=== PATIENT | female | born 2000 | race Caucasian/White ===

== ENCOUNTER 2020-10-31 02:22 | Inpatient (IN) ==
[2020-10-31] MEDS ORDERED: ONDANSETRON INJ 2 MG/ML 2 ML VIAL IV STA (02:57)
[2020-10-31] MEDS ORDERED: SODIUM CHLORIDE 0.9% 1000ML 1,000 ML IV SCH (03:00)
[2020-10-31] MEDS: MoRPHine SULFATE 4 MG/ML 1 ML CARP\\VIAL IV PRN ×4 (03:10→08:50)
[2020-10-31 03:15] LABS: Basophils # (auto) 0.02 K/uL (0-0.2); Basophils % (auto) 0.1 %; Eosinophils # (auto) 0.04 K/uL (0-0.5); Eosinophils % (auto) 0.2 %; Hemoglobin 14.7 g/dL (12.0-16.0); Immature Granulocytes # (auto) 0.03 K/uL (0.00-0.02); Immature Granulocytes % (auto) 0.2 %; Lymphocytes # (auto) 2.28 K/uL (1.2-3.4); Lymphocytes % (auto) 14.2 %; Mean Corpuscular Hemoglobin 31.5 pg (25-34); Mean Corpuscular Volume 90.1 fL (80-100); Mean Platelet Volume 10.6 fL (7.4-10.4); Monocytes # (auto) 0.77 K/uL (0.11-0.59); Monocytes % (auto) 4.8 %; Neutrophils # (auto) 12.89 K/uL (1.4-6.5); Neutrophils % (auto) 80.5 %; Platelet Count 263 K/uL (130-400); RDW Coefficient of Variation 12.3 % (11.5-14.5); RDW Standard Deviation 40.1 fL (36.4-46.3); Red Blood Count 4.66 M/uL (4.2-5.4); White Blood Count 16.03 K/uL (4.8-10.8)
[2020-10-31 03:20] LABS: Appearance Urine Cloudy (Clear); Bacteria Urine Automated 2+ (Negative); Bilirubin Urine Negative (Negative); Blood Urine 3+ (Negative); Color Urine Yellow; Epithelial Cell Urine Auto >30 /lpf (0-5); Glucose Urine UA Negative (Negative); Ketones Urine Trace (Negative); Leukocyte Esterase Urine Trace (Negative); Nitrite Urine Negative (Negative); Protein Urine Trace (Negative); Specific Gravity Urine 1.028 (1.000-1.030); Urobilinogen Urine Negative (Negative); pH Urine 5.5 (4.5-7.5)
[2020-10-31 03:25] LABS: Alanine Aminotransferase 26 U/L (12-78); Albumin Level 3.7 gm/dl (3.4-5.0); Aspartate Aminotransferase 19 U/L (15-37); BUN Creatinine Ratio 15.7 (10-20); Blood Urea Nitrogen 13 mg/dl (7-18); Calcium 9.3 mg/dl (8.5-10.1); Carbon Dioxide 24 mmol/L (21-32); Chloride 104 mmol/L (98-107); Creatinine Clr Calc Pharmacy 107.4 ml/min; Est GFR (African American) 120.3 ml/min; Est GFR (Non-African American) 103.8 ml/min; Glucose 94 mg/dl (70-99); Lipase 120 U/L (73-393); Potassium 3.8 mmol/L (3.5-5.1); Sodium 138 mmol/L (136-145)
[2020-10-31 03:30] LABS: Albumin Globulin Ratio 0.7 (0.9-2); Alkaline Phosphatase 68 U/L (45-117); Bilirubin,Total 0.4 mg/dl (0.2-1); Globulin 5.4 gm/dl (2.5-4.0); Total Protein 9.1 gm/dl (6.4-8.2); Troponin I < 0.015 ng/ml (0-0.045)
[2020-10-31] MEDS ORDERED: OPTIRAY 320 125ml IV ONE (03:47)
[2020-10-31] MEDS ORDERED: ALBUT/IPRATROP 3MG/0.5MG NEB 3 ML VIAL NEB STA (04:05)
[2020-10-31] MEDS ORDERED: LORazepam 0.5 MG/1 ML VIAL IV STA (04:05)
[2020-10-31] MEDS ORDERED: Heparin IV Adult Wt-Based Standard WITH Bolus Protocol IV STA (04:57)
[2020-10-31] MEDS ORDERED: HEPARIN SOD (PORCINE) 1000 UNIT/ML IV ONE (05:13)
[2020-10-31] MEDS: HEPARIN SODIUM/DEXTROSE 25,000 UNITS/500 ML BAG IV SCH (05:29)
[2020-10-31 05:44] LABS: Partial Thromboplastin Time 25.9 Seconds (21.0-31.0); Prothrombin Time 9.8 Seconds (9.0-12.0)
--- NOTE | 2020-10-31 05:48 | History & Physical Report ---
Date of Service October 31, 2020 Assessment & Plan (1) Pulmonary emboli: Plan: 19-year-old female with no significant past medical history presenting with extensive bilateral PEs. Patient with sinus tachycardia, blood pressure is stable, no respiratory distress, adequate oxygenation on room air. PESI Score is very low at 41 as is shock index. Possible risk factors for VTE include recent car ride from [place], oral contraceptive use. Patient did just receive the Pedro [employer] Pedro Covid vaccine was has been associated with an increased risk of VTE when compared with placebo; specifically in women of childbearing age. While this is an extremely rare side effect of the vaccine it must be considered in this current case. Patient's platelets are normal at 263. Admit to PCU Check bilateral lower extremity Dopplers. Patient with large pulmonary clot burden Check 2D echo to assess for right heart strain Repeat troponin x1 Check BNP Check urine test We will check hyper coagulable labs to include prothrombin mutation, factor V, homocystine, protein C and protein S Continue heparin drip Dilaudid 1 mg IV every hour as needed Lidoderm patch (2) Anxiety: Plan: Chronic. Continue escitalopram at home dose Plan: FENHep-Lock, electrolytes within normal limits, regular diet as tolerated ProphylaxisHeparin drip as above Codefull Dispositionadmit to PCU History of Present Illness Chief Complaint: Pleuritic chest pain Primary Care Provider: [facility] Chika Eckert is a 19-year-old female with no significant past medical history presenting with extensive left-sided PE. Patient woke up yesterday with pain in the left side of her chest worse with deep breathing. The pain worsened throughout the day. She was unable to lay on her left side or take a deep breath. Pain stabbing in nature, 10 out of 10 in severity. She denies palpitations, dizziness, syncope, abdominal pain, nausea, vomiting, diarrhea, constipation No additional complaints Patient denies personal or family history of VTE. No trauma. Patient is on LoEstrin OCPs. She did have a recent car ride from [place]4 hours long. She did receive the Pedro [employer] Pedro Covid vaccine approximately 1-1/2 weeks ago. Patient tachycardic upon arrival and tachypneic. Blood pressure stable. No respiratory distress. Adequate oxygenation on room air. She does CTA of the chest performed which revealed large embolus originating in the distal left pulmonary artery and extending into the origin of the left upper lobe and left lower lobe pulmonary arteries extending into the left posterior and lateral basal segments and subsegmental pulmonary arteries. Also with lower lobe consolidation most consistent with hemorrhage or infarct. Also with pulmonary emboli on the right side from the distal right pulmonary artery and the proximal right lower lobe, right middle lobe and right upper lobe. ER course: Heparin bolus and drip started Allergies Allergy/AdvReac Type Severity Reaction Status Date / Time Sulfa (Sulfonamide Allergy Unknown Verified 10/31/20 05:55 Antibiotics) Home Medications Medication Instructions Recorded Confirmed Type escitalopram oxalate 20 mg tablet 20 mg PO DAILY 10/31/20 10/31/20 History norethindrone 1 mg-ethinyl tab PO DAILY 10/31/20 History estradiol 10 mcg (24)-iron 10 mcg(2) tablet (Lo Loestrin Fe) Past Med/Surg History Medical History (Updated 10/31/20 @ 06:15 by Josie Quinteros DO) No significant past medical history Surgical History (Updated 10/31/20 @ 05:57 by Josie Quinteros DO) History of tonsillectomy History of wisdom tooth extraction Family History (Updated 10/31/20 @ 05:57 by Josie Quinteros DO) Other No significant family history Social History (Updated 10/31/20 @ 05:58 by Josie Quinteros DO) Smoking Status: Never smoker Hx Alcohol Use: Yes Hx Substance Use: No Preferred Language: Eritrean Feels Safe at Home: Yes Review of Systems Review of Systems: All systems reviewed & are unremarkable except as noted in HPI & below Physical Exam Physical Exam: General: patient tearful, uncomfortable, AA&O x 4 Skin: warm, dry, intact, no rashes or lesions HEENT: NC/AT, PERRL, EOMI, anicteric sclera, conjunctiva without injection, external ear normal to inspection and nontender, nares patent, moist mucus membranes, dentition intact, no oropharyngeal lesions, neck supple, trachea midline, no LAD, no thyromegaly, no JVD Heart: +S1/S2, regular, tachycardic, no m/r/g Lungs: short, shallow breaths, tachypneic, equal air entry bilaterally, no rales/rhonchi/wheezes, +pleuritic chest pain Abd: +BS, soft, NT/ND, no masses/organomegaly/ascites Ext: warm, 2+ pulses in UE/LE bilaterally, no clubbing/cyanosis or edema Neuro: nonfocal, patient AA&O x 4, speech intact, no facial droop, moving all extremities on command with equal strength 5/5 Results & Data Results & Data ([facility]) Vital Signs (Past 12 Hours) Vital Signs Temp Pulse Pulse Resp BP Pulse Ox 10/31/20 05:30 138 H 28 H 130/89 95 10/31/20 05:00 131 H 29 H 131/75 96 10/31/20 04:30 121 H 26 H 127/86 94 10/31/20 04:14 127 H 26 H 100 10/31/20 04:00 115 H 29 H 135/85 97 10/31/20 03:15 105 H 29 H 125/78 100 10/31/20 02:27 37.1 C 134 H 20 127/82 98 Laboratory Results Lab Results 10/31/20 10/31/20 10/31/20 Range/Units 02:54 02:54 02:54 WBC 16.03 H (4.8-10.8) K/uL RBC 4.66 (4.2-5.4) M/uL Hgb 14.7 (12.0-16.0) g/dL Hct 42.0 (37-47) % MCV 90.1 (80-100) fL MCH 31.5 (25-34) pg MCHC 35.0 (32-36) g/dL RDW Std Deviation 40.1 (36.4-46.3) fL RDW Coeff of Alisha 12.3 (11.5-14.5) % Plt Count 263 (130-400) K/uL MPV 10.6 H (7.4-10.4) fL Immature Gran % (Auto) 0.2 % Neut % (Auto) 80.5 % Lymph % (Auto) 14.2 % [place] % (Auto) 4.8 % Eos % (Auto) 0.2 % Baso % (Auto) 0.1 % Neut # (Auto) 12.89 H (1.4-6.5) K/uL Lymph # (Auto) 2.28 (1.2-3.4) K/uL [place] # (Auto) 0.77 H (0.11-0.59) K/uL Eos # (Auto) 0.04 (0-0.5) K/uL Baso # (Auto) 0.02 (0-0.2) K/uL Immature Gran # (Auto) 0.03 H (0.00-0.02) K/uL PT (9.0-12.0) Seconds INR (0.9-1.1) APTT (21.0-31.0) Seconds PTT Ratio Sodium 138 (136-145) mmol/L Potassium 3.8 (3.5-5.1) mmol/L Chloride 104 (98-107) mmol/L Carbon Dioxide 24 (21-32) mmol/L Anion Gap 10.0 (3-11) BUN 13 (7-18) mg/dl Creatinine 0.81 (0.6-1.2) mg/dl Est Cr Clr Drug Dosing 107.4 ml/min Est GFR ( Amer) 120.3 ml/min Est GFR (Non-Af Amer) 103.8 ml/min BUN/Creatinine Ratio 15.7 (10-20) Glucose 94 (70-99) mg/dl Calcium 9.3 (8.5-10.1) mg/dl Total Bilirubin 0.4 (0.2-1) mg/dl AST 19 (15-37) U/L ALT 26 (12-78) U/L Alkaline Phosphatase 68 (45-117) U/L Troponin I < 0.015 (0-0.045) ng/ml Total Protein 9.1 H (6.4-8.2) gm/dl Albumin 3.7 (3.4-5.0) gm/dl Globulin 5.4 H (2.5-4.0) gm/dl Albumin/Globulin Ratio 0.7 L (0.9-2) Lipase 120 (73-393) U/L Urine Color Yellow Urine Appearance Cloudy A (Clear) Urine pH 5.5 (4.5-7.5) Ur Specific [place] 1.028 (1.000-1.030) Urine Protein Trace H (Negative) Urine Glucose (UA) Negative (Negative) Urine Ketones Trace H (Negative) Urine Blood 3+ H (Negative) Urine Nitrite Negative (Negative) Urine Bilirubin Negative (Negative) Urine Urobilinogen Negative (Negative) Ur Leukocyte Esterase Trace H (Negative) Urine WBC (Auto) 10-30 H (0-5) /hpf Urine RBC (Auto) 10-30 H (0-4) /hpf U Hyaline Cast (Auto) 5-10 H (0-5) /lpf U Epithel Cells (Auto) >30 H (0-5) /lpf Urine Bacteria (Auto) 2+ H (Negative) COVID-19 Eval Order SARS-CoV-2 (PCR) (Negative) 10/31/20 10/31/20 10/31/20 Range/Units 03:53 03:53 05:10 WBC (4.8-10.8) K/uL RBC (4.2-5.4) M/uL Hgb (12.0-16.0) g/dL Hct (37-47) % MCV (80-100) fL MCH (25-34) pg MCHC (32-36) g/dL RDW Std Deviation (36.4-46.3) fL RDW Coeff of Alisha (11.5-14.5) % Plt Count (130-400) K/uL MPV (7.4-10.4) fL Immature Gran % (Auto) % Neut % (Auto) % Lymph % (Auto) % [place] % (Auto) % Eos % (Auto) % Baso % (Auto) % Neut # (Auto) (1.4-6.5) K/uL Lymph # (Auto) (1.2-3.4) K/uL [place] # (Auto) (0.11-0.59) K/uL Eos # (Auto) (0-0.5) K/uL Baso # (Auto) (0-0.2) K/uL Immature Gran # (Auto) (0.00-0.02) K/uL PT 9.8 (9.0-12.0) Seconds INR 1.0 (0.9-1.1) APTT 25.9 (21.0-31.0) Seconds PTT Ratio 1.0 Sodium (136-145) mmol/L Potassium (3.5-5.1) mmol/L Chloride (98-107) mmol/L Carbon Dioxide (21-32) mmol/L Anion Gap (3-11) BUN (7-18) mg/dl Creatinine (0.6-1.2) mg/dl Est Cr Clr Drug Dosing ml/min Est GFR ( Amer) ml/min Est GFR (Non-Af Amer) ml/min BUN/Creatinine Ratio (10-20) Glucose (70-99) mg/dl Calcium (8.5-10.1) mg/dl Total Bilirubin (0.2-1) mg/dl AST (15-37) U/L ALT (12-78) U/L Alkaline Phosphatase (45-117) U/L Troponin I (0-0.045) ng/ml Total Protein (6.4-8.2) gm/dl Albumin (3.4-5.0) gm/dl Globulin (2.5-4.0) gm/dl Albumin/Globulin Ratio (0.9-2) Lipase (73-393) U/L Urine Color Urine Appearance (Clear) Urine pH (4.5-7.5) Ur Specific [place] (1.000-1.030) Urine Protein (Negative) Urine Glucose (UA) (Negative) Urine Ketones (Negative) Urine Blood (Negative) Urine Nitrite (Negative) Urine Bilirubin (Negative) Urine Urobilinogen (Negative) Ur Leukocyte Esterase (Negative) Urine WBC (Auto) (0-5) /hpf Urine RBC (Auto) (0-4) /hpf U Hyaline Cast (Auto) (0-5) /lpf U Epithel Cells (Auto) (0-5) /lpf Urine Bacteria (Auto) (Negative) COVID-19 Eval Order Covid19 at [facility] SARS-CoV-2 (PCR) NEGATIVE (Negative) Diagnostic Findings CTA chest: Per stat readlarge embolus originating the distal left pulmonary artery and extending into the origin of the left upper lobe and left lower lobe pulmonary arteries extending and most significantly into the left posterior and lateral basal segments and subsegmental pulmonary arteries. There is left lower lobe consolidation within the distribution of multiple left posterior pulmonary basal emboli which may indicate pulmonary hemorrhage or infarct. On the right there is pulmonary emboli extending from the distal right pulmonary artery in the proximal right lower lobes, right middle lobe and right upper lobe pulmonary arteries consistent. The RV/LV ratio is less than 1 with no evidence of right- sided cardiac strain. Upper abdominal structures unremarkable. ECG Additional Comments: EKG with sinus tachycardia 109 bpm, normal axis, KS = 126, QRS = 78, QTc = 449, T wave inversion present in V1 and V2 PG Care Time/CCT Total # of Minutes Spent Total Time Spent with Patient: Total time spent is greater than 50% in coordination of care (as documented) at patient's floor/unit and/or counseling patient: Coding Level of Care Code 08399 Initial Inpt Care Lvl 2 Diagnoses Pulmonary emboli I26.99 Anxiety F41.9
--- NOTE | 2020-10-31 07:44 | CT Scan Report ---
CHEST CTA for PULMONARY ARTERIES CT DOSE: HISTORY: Left-sided chest pain. TECHNIQUE: Multiaxial CT images of the chest were performed following the intravenous administration of contrast to evaluate the pulmonary arteries. Maximal intensity projection images were also obtaine d. A dose lowering technique was utilized adhering to the principles of ALARA. COMPARISON STUDY: None. FINDINGS: Please refer to same day abdomen and pelvis CT for further evaluation of the abdominal stru ctures. Normal caliber thoracic aorta with no evidence for dissection. There is flattening of the int erventricular septum suggestive of borderline right-sided heart strain. There are extensive bilateral pulmonary emboli seen within the distal main pulmonary arteries and extending at the majority of the lobar and segmental pulmonary arteries most pronounced within the left lower lobe. No mediastinal or hilar lymphadenopathy. Normal esophagus. No fractures within the visualized osseous structures. No p neumothorax. The central airways are patent. Wedge-shaped peripheral opacity within the basal left lo wer lobe. This likely represents a pulmonary infarct. The right lung is clear. The main pulmonary art aj is borderline dilated 3 cm. IMPRESSION: 1. Extensive bilateral pulmonary emboli with borderline right-sided heart strain. 2. Left lower lobe peripheral airspace opacities consistent with pulmonary infarcts. ACT 112: Negative or not required by law. Electronically signed by: Cesar Nielsen M.D. 10/31/2020 7:43 AM
--- NOTE | 2020-10-31 08:06 | CT Scan Report ---
CT SCAN OF THE ABDOMEN AND PELVIS WITHOUT IV CONTRAST CLINICAL HISTORY: Left flank pain. COMPARISON STUDY: No priors. TECHNIQUE: CT scan of the abdomen and pelvis is performed from the lung bases to the proximal femora. Images are reviewed in the axial, sagittal, and coronal planes. IV contrast was not administered for this examination. A dose lowering technique was utilized adhering to the principles of ALARA. CT DOSE: 1195.36 mGy.cm FINDINGS: Lung bases: The heart is normal in size and without pericardial effusion. Airspace consolidation is s een at the left lung base. The right lung base appears clear. There is trace left pleural effusion. Liver: The unenhanced liver is normal in size, contour, and attenuation. There is no intrahepatic thomas iary ductal dilatation. Gallbladder: Unremarkable. Spleen: Normal in size and attenuation. Pancreas: Unremarkable. Adrenal glands: Unremarkable. Kidneys: The unenhanced kidneys are normal in size and without hydronephrosis. There are no renal rasta culi identified. There is no evidence of contour deforming renal mass lesion. Abdominal vasculature: The abdominal aorta is normal in course and caliber. Bowel: There is no bowel obstruction. Mild to moderate fecal retention is seen throughout the colon. The appendix is well-visualized and normal. Peritoneum: There is no intraperitoneal free air or abdominal ascites. There is a fat-containing umbi lical hernia. Lymphadenopathy: None. Pelvic viscera: The bladder, uterus, and adnexa are normal as visualized noting bilateral ovarian fol licles. Skeletal structures: No lytic or blastic lesions are seen. IMPRESSION: 1. There are no acute infectious or inflammatory findings in the abdomen or pelvis. 2. There is left basilar consolidation. See report of chest CT performed concurrently for detailed in trathoracic findings. ACT 112: Negative or not required by law. Electronically signed by: Marc Durán M.D. 10/31/2020 8:04 AM
[2020-10-31] MEDS ORDERED: ACETAMINOPHEN 325 MG TAB PO PRN (09:01)
[2020-10-31] MEDS ORDERED: ONDANSETRON INJ 2 MG/ML 2 ML VIAL IV PRN (09:01)
[2020-10-31] MEDS: ESCITALOPRAM OXALATE 20 MG TAB PO SCH (10:39)
[2020-10-31] MEDS: LIDOCAINE 5% 1 PATCH TD SCH (10:39)
[2020-10-31 10:44] LABS: Partial Thromboplastin Ratio 1.7
[2020-10-31 10:45] LABS: Partial Thromboplastin Time 45.7 Seconds (21.0-31.0)
--- NOTE | 2020-10-31 11:21 | Ultrasound Report ---
ULTRASOUND BILATERAL LOWER EXTREMITY VENOUS CLINICAL HISTORY: Pulmonary embolus. COMPARISON STUDY: No priors. TECHNIQUE: Real-time, grayscale, and color Doppler sonography of the deep veins of the right and left lower extremity was performed from the inguinal crease to the calf. Compression and augmentation wer e utilized. FINDINGS: There is no sonographic evidence of deep venous thrombosis identified in the right or left lower extremity. The common femoral, superficial femoral, and popliteal veins are patent and normally compressible bilaterally. The greater saphenous vein and the profunda femoris vein at the junction w ith the common femoral vein are clear in both legs. The visualized calf veins are patent bilaterally. IMPRESSION: There is no sonographic evidence of deep venous thrombosis identified in the right or lef t lower extremity. ACT 112: Negative or not required by law. Electronically signed by: Marc Durán M.D. 10/31/2020 11:19 AM
[2020-10-31] MEDS: HYDROmorphone INJ 1 MG/ML SYRINGE IV PRN ×4 (11:34→22:59)
--- NOTE | 2020-10-31 15:26 | Medical Student Progress Note ---
Date of Service October 31, 2020 Assessment & Plan (1) Pulmonary emboli: Plan: -Patient was tachypneic, tachycardiac, and afebrile, symptoms improved with 1mg Diluadid -Chest CTA Extensive bilateral pulmonary emboli with borderline right-sided heart strain, left lower lobe peripheral airspace opacities consistent with pulmonary infarct -Abdominal CTA negative -Venous Doppler Study negative -Hypercoagulability panel results still pending -Continue heparin per protocol -Concern for left lower lobe infarct and hemorrhagic conversion. Thus if patient condition worsens, there is a lower threshold for a CT to be ordered -Patient should discontinue OCP Admission and Anticipated Discharge Date Admission Date: October 31, 2020 Subjective 19 year old female who presented to the ED with shortness of breath and chest pain. The patient stated that yesterday she was not feeling very well and was having some upper abdominal/chest pain that she thought was gas pains. She thought the pain would improve but instead it progressed and she decided to seek out medical attention when she was having trouble breathing when she was lying down on the couch. Upon arrival to the ED the patient was tachycardic, tachypneic, with a stable blood pressure, and in no respiratory distress. A Chest CTA was ordered and it showed extensive bilateral pulmonary emboli. When seen, the patient said she was in pain and felt short of breath. She states that the only medications she takes are control and an antidepressant whose name she could not remember. The patient has an extensive family history of blood clotting disorders on her maternal side of the family. The patient received the J&J vaccine about a week or two ago and was wondering if it could be the cause of the blood clots. Review of Systems Review of Systems: All systems reviewed & are unremarkable except as noted in Subjective Physical Exam Constitutional: Well developed well nourished female in acute distress, flushe d, shallow breathes, unable to speak in complete sentences Respiratory: Tachypneic, decreased breath sounds Cardiovascular: Tachycardic, normal rhythm, normal S1 S2 sounds, no murmurs, rubs, or gallops Results & Data ([facility]) Vital Signs (Past 12 Hours) Vital Signs Pulse Pulse Pulse Resp BP BP Pulse Ox 10/31/20 12:00 98 H 15 132/82 97 10/31/20 11:17 115 H 40 H 131/81 98 10/31/20 10:21 121 H 38 H 138/84 98 10/31/20 09:00 114 H 28 H 106/69 99 10/31/20 08:51 115 H 30 H 106/69 98 10/31/20 08:50 113 H 35 H 97 10/31/20 08:30 108 H 28 H 114/80 95 10/31/20 08:00 110 H 26 H 105/66 94 10/31/20 07:30 114 H 25 H 101/67 95 10/31/20 07:23 112 H 18 107/62 93 10/31/20 07:00 113 H 24 107/62 94 10/31/20 06:30 118 H 21 112/61 93 10/31/20 06:00 136 H 26 H 123/88 97 10/31/20 05:30 138 H 28 H 130/89 95 10/31/20 05:00 131 H 29 H 131/75 96 10/31/20 04:30 121 H 26 H 127/86 94 10/31/20 04:14 127 H 26 H 100 10/31/20 04:00 115 H 29 H 135/85 97
[2020-10-31 17:47] LABS: Partial Thromboplastin Ratio 1.5; Partial Thromboplastin Time 38.4 Seconds (21.0-31.0)
--- NOTE | 2020-10-31 18:40 | Hospitalist Progress Note ---
Date of Service October 31, 2020 Assessment & Plan (1) Pulmonary emboli: Plan: 19yo female without significant PMH presents with bilateral pulmonary emboli. Bilateral pulmonary embolism Patient presented with sudden-onset CP and SOB Tachycardic and tachypneic on admission; tachycardia has since resolved; afebrile Hemodynamically stable; oxygen requirement stable at 2L NC CTA chest with bilateral pulmonary emboli, borderline right-sided heart strain, left lower lobe peripheral airspace opacities consistent with pulmonary infarct Some concern for potential hemorrhagic conversion of LLL infarct If patient clinically worsens, low threshold for CT chest (without contrast) and transfer to ICU BL LE doppler negative for DVT Continue heparin gtt Hypercoagulability workup pending OCP discontinued Continue dilauded IV q1h prn FEN: regular diet Code status: full code DVT ppx: heparin Consults: none PT/OT: not indicated Dispo: PCU tele Admission and Anticipated Discharge Date Admission Date: October 31, 2020 Supervising Physician Co-Signing Physician Notes Resident Physician Supervision Note: I independently interviewed and examined the patient and verified the [place] history and physical, reviewed labs and image studies and agree with resident Dr. Guillen findings and care plan. Subjective Patient seen and evaluated at bedside this morning. Patient endorses continued chest pain and SOB, though gradually improving since admission. Patient denies abdominal pain, nausea, vomiting, lightheadedness, dizziness, and diarrhea. Review of Systems Review of Systems: See HPI Physical Exam Physical Exam: Constitutional: uncomfortable-appearing but no acute distress, speaking in short sentences HEENT: MMM, mild facial flushing CV: tachycardic, no murmur appreciated, extremities well-perfused, no LE edema Resp: poor air movement/shallow breaths, mild expiratory wheezing, tachypneic Skin: warm, dry, no rash appreciated Neuro: AOx4, no focal neurological deficits appreciated Results & Data Results & Data ([facility]) Vital Signs (Past 12 Hours) Vital Signs Temp Pulse Pulse Pulse Resp BP BP 10/31/20 16:02 36.6 C 94 H 26 H 136/90 10/31/20 16:00 103 H 10/31/20 12:00 98 H 15 132/82 10/31/20 11:17 115 H 40 H 131/81 10/31/20 10:21 121 H 38 H 138/84 10/31/20 09:00 114 H 28 H 106/69 10/31/20 08:51 115 H 30 H 106/69 10/31/20 08:50 113 H 35 H 10/31/20 08:30 108 H 28 H 114/80 10/31/20 08:00 110 H 26 H 105/66 10/31/20 07:30 114 H 25 H 101/67 10/31/20 07:23 112 H 18 107/62 10/31/20 07:00 113 H 24 107/62 Pulse Ox 10/31/20 16:02 100 10/31/20 16:00 10/31/20 12:00 97 10/31/20 11:17 98 10/31/20 10:21 98 10/31/20 09:00 99 10/31/20 08:51 98 10/31/20 08:50 97 10/31/20 08:30 95 10/31/20 08:00 94 10/31/20 07:30 95 10/31/20 07:23 93 10/31/20 07:00 94 Resident Activity Tracking Resident Involvement: Resident Care Provided Care Provided: Adult Hospital Medicine
[2020-10-31 23:18] LABS: Pregnancy Test, Urine Negative (Negative)
[2020-11-01 00:43] LABS: Partial Thromboplastin Ratio 1.4; Partial Thromboplastin Time 37.3 Seconds (21.0-31.0)
[2020-11-01] MEDS ORDERED: HEPARIN SOD (PORCINE) 1000 UNIT/ML IV ONE (00:45)
[2020-11-01] MEDS: HEPARIN SODIUM/DEXTROSE 25,000 UNITS/500 ML BAG IV SCH ×4 (03:11→17:35)
[2020-11-01] MEDS: HYDROmorphone INJ 1 MG/ML SYRINGE IV PRN ×5 (06:19→22:58)
[2020-11-01 07:49] LABS: Partial Thromboplastin Ratio 1.7; Partial Thromboplastin Time 43.9 Seconds (21.0-31.0)
[2020-11-01 07:54] LABS: Hematocrit (blood only) 35.9 % (37-47); Hemoglobin 11.8 g/dL (12.0-16.0); Mean Corpuscular Hemoglobin 30.3 pg (25-34); Mean Corpuscular Hgb Conc 32.9 g/dL (32-36); Mean Corpuscular Volume 92.3 fL (80-100); Mean Platelet Volume 10.7 fL (7.4-10.4); Platelet Count 239 K/uL (130-400); RDW Coefficient of Variation 12.5 % (11.5-14.5); Red Blood Count 3.89 M/uL (4.2-5.4); White Blood Count 12.34 K/uL (4.8-10.8)
--- NOTE | 2020-11-01 08:17 | Medical Student Progress Note ---
Date of Service November 01, 2020 Assessment & Plan (1) Pulmonary emboli: Plan: --Pt is hemodynamically stable -Chest CTA Extensive bilateral pulmonary emboli with borderline right-sided heart strain, left lower lobe peripheral airspace opacities consistent with pulmonary infarct -Abdominal CTA negative -Venous Doppler Study negative -Hypercoagulability panel results still pending -Echo pending -Concern for left lower lobe infarct and hemorrhagic conversion, if patient condition worsens lower threshold for a CT to be ordered -Continue heparin per protocol -Continue dilauded IV q1h prn -OCP discontinued Admission and Anticipated Discharge Date Admission Date: October 31, 2020 Subjective 19 y/o female with Chest CTA findings of extensive bilateral pulmonary emboli. Today, the patient lying down in bed. She says that she is still in pain and rates it an 8/10. The patient says she received medication before she was seen and that it helped a lot with her pain. She says that it's still painful to breathe but slightly easier. Review of Systems Review of Systems: All systems reviewed & are unremarkable except as noted in Subjective Physical Exam Constitutional: Well developed, well nourished female, fatigued, shallow breaths, unable to speak in full sentences Respiratory: Decreased breath sounds Cardiovascular: Regular rate and rhythm, normal S1 and S2, no murmurs rubs or gallops Results & Data ([facility]) Vital Signs (Past 12 Hours) Vital Signs Temp Pulse Pulse Resp BP Pulse Ox 11/01/20 07:40 36.9 C 100 H 24 110/78 98 11/01/20 04:42 36.8 C 91 H 16 115/72 99 11/01/20 00:23 91 H 10/31/20 23:24 36.8 C 102 H 16 131/83 98
[2020-11-01 08:20] LABS: BUN Creatinine Ratio 12.3 (10-20); Blood Urea Nitrogen 8 mg/dl (7-18); Calcium 8.6 mg/dl (8.5-10.1); Carbon Dioxide 27 mmol/L (21-32); Chloride 102 mmol/L (98-107); Creatinine Clr Calc Pharmacy 141.2 ml/min; Est GFR (African American) 149.4 ml/min; Est GFR (Non-African American) 128.9 ml/min; Glucose 95 mg/dl (70-99); Sodium 134 mmol/L (136-145)
[2020-11-01 08:35] LABS: Basophils # (auto) 0.02 K/uL (0-0.2); Basophils % (auto) 0.2 %; Eosinophils # (auto) 0.04 K/uL (0-0.5); Eosinophils % (auto) 0.3 %; Immature Granulocytes # (auto) 0.02 K/uL (0.00-0.02); Immature Granulocytes % (auto) 0.2 %; Lymphocytes # (auto) 1.98 K/uL (1.2-3.4); Monocytes # (auto) 1.11 K/uL (0.11-0.59); Neutrophils # (auto) 9.17 K/uL (1.4-6.5); Neutrophils % (auto) 74.3 %
--- NOTE | 2020-11-01 09:59 | Hospitalist Progress Note ---
Date of Service November 01, 2020 Assessment & Plan (1) Pulmonary emboli: Plan: 19yo female without significant PMH presents with bilateral pulmonary emboli. Bilateral pulmonary embolism Patient presented with sudden-onset CP and SOB Tachycardic and tachypneic on admission; tachycardia has since resolved; afebrile Hemodynamically stable; oxygen requirement stable at 2L NC CTA chest with bilateral pulmonary emboli, borderline right-sided heart strain, left lower lobe peripheral airspace opacities consistent with pulmonary infarct BL LE doppler negative for DVT Continue heparin gtt Echo pending Hypercoagulability workup pending OCP discontinued Continue dilauded IV q1h prn due to persistent 8/10 pain. Antcipate d/c home in am. FEN: regular diet Code status: full code DVT ppx: heparin Consults: none PT/OT: not indicated Dispo: PCU tele Admission and Anticipated Discharge Date Admission Date: October 31, 2020 Supervising Physician Co-Signing Physician Notes Resident Physician Supervision Note: I independently interviewed and examined the patient and verified the [place] history and physical, reviewed labs and image studies and agree with resident Dr. Guillen findings and care plan. Subjective Patient seen and evaluated at bedside this morning. No acute events overnight. Today patient is still struggling with chest pain (8/10) and shortness of breath. Endorses minimal improvement compared to yesterday. Patient used bedside commode this morning and reported significant dyspnea when up and moving to any degree. Patient denies abdominal pain, nausea, vomiting, lightheadedness, dizziness, and diarrhea. Review of Systems Review of Systems: See HPI Physical Exam Physical Exam: Constitutional: uncomfortable-appearing but no acute distress, speaking in short sentences HEENT: MMM, mild facial flushing CV: tachycardic, no murmur appreciated, extremities well-perfused, no LE edema Resp: poor air movement/shallow breaths, mild expiratory wheezing, tachypneic Skin: warm, dry, no rash appreciated Neuro: AOx4, no focal neurological deficits appreciated Results & Data Results & Data ([facility]) Vital Signs (Past 12 Hours) Vital Signs Temp Pulse Pulse Resp BP Pulse Ox 11/01/20 07:40 36.9 C 100 H 24 110/78 98 11/01/20 04:42 36.8 C 91 H 16 115/72 99 11/01/20 00:23 91 H 10/31/20 23:24 36.8 C 102 H 16 131/83 98 Resident Activity Tracking Resident Involvement: Resident Care Provided Care Provided: Adult Hospital Medicine
[2020-11-01] MEDS: ESCITALOPRAM OXALATE 20 MG TAB PO SCH (10:20)
[2020-11-01] MEDS: LIDOCAINE 5% 1 PATCH TD SCH (10:20)
[2020-11-01 15:12] LABS: Partial Thromboplastin Ratio 1.5; Partial Thromboplastin Time 40.4 Seconds (21.0-31.0)
[2020-11-01 22:04] LABS: Partial Thromboplastin Ratio 1.5; Partial Thromboplastin Time 40.3 Seconds (21.0-31.0)
--- NOTE | 2020-11-02 01:51 | Emergency Department Note ---
History of Present Illness General Chief complaint: Flank Pain Stated complaint: REALLY BAD LEFT SIDE PAIN INTO SHOULDER Time Seen by Provider: 10/31/20 02:46 History of Present Illness Maximum Pain Intensity: 6 This is a 19-year-old female presenting to the emergency department for evalu ation of left-sided flank pain and difficulty with taking a deep breath. The patient symptoms have been worsening over the past several hours. She is having pain in the left upper quadrant that is also radiating into her left shoulder. The patient is on control and Lexapro. She did recently travel from [place] to begin the at [facility]. She did get the [employer] COVID-19 vaccination about a week ago. She is not having significant head, neck, or abdominal discomfort. She has not taken anything [id number] for her symptoms, and rates her discomfort a 6/10. She does not have any significant surgical or past family history. Home Medications Medication Instructions Recorded Confirmed Type escitalopram oxalate 20 mg tablet 20 mg PO DAILY 10/31/20 10/31/20 History norethindrone 1 mg-ethinyl 1 tab PO DAILY 10/31/20 10/31/20 History estradiol 10 mcg (24)-iron 10 mcg(2) tablet (Lo Loestrin Fe) Allergies Allergy/AdvReac Type Severity Reaction Status Date / Time Sulfa (Sulfonamide Allergy Unknown Verified 10/31/20 05:55 Antibiotics) Past Med/Surg History Medical History No significant past medical history Surgical History History of tonsillectomy History of wisdom tooth extraction Family History Other No significant family history Social History Smoking Status: Never smoker Hx Alcohol Use: Yes Hx Substance Use: No Preferred Language: Sinhala Communication Ability: Effective Beliefs That Will Affect Care: None Current Living Situation: Alone Feels Safe at Home: Yes Assistive Devices: None Review of Systems A total of 10 systems reviewed and were otherwise negative Physical Exam VITALS: Vitals are noted on the nurse's note and reviewed by myself. Vital signs with tachycardia GENERAL: White female who appears moderately uncomfortable on exam HEAD: Normocephalic atraumatic. HEART: Tachycardic rate LUNGS: Clear to auscultation bilaterally without wheezes, rales or rhonchi. No retractions or accessory muscle use. ABDOMEN: Positive normal bowel sounds x 4. Soft, nontender, without masses or organomegaly. No guarding or rebound tenderness. MUSCULOSKELETAL: No muscle atrophy, erythema, or edema noted. Full range of motion in all extremities. NEURO: Patient was alert and oriented to person place and time. CN II through XII grossly intact. SKIN: The skin was with significant rash. She does have facial flushing. Course Administered Medications Acetaminophen (Acetaminophen 325 Mg Tab) 650 mg PO Q4H PRN PRN Reason: Pain or Fever Stop: 11/30/20 09:00 Last Admin: 11/01/20 23:18 Dose: 650 mg Documented by: [id number] Escitalopram Oxalate (Escitalopram Oxalate 20 Mg Tab) 20 mg PO DAILY RAY Stop: 11/30/20 09:00 Last Admin: 11/01/20 10:20 Dose: 20 mg Documented by: [id number] Admin: 10/31/20 10:39 Dose: 20 mg Documented by: [id number] Hydromorphone HCl (Hydromorphone Inj 1 Mg/Ml Syringe) 1 mg IV Q1H PRN PRN Reason: Pain Stop: 11/14/20 09:06 Last Admin: 11/01/20 22:58 Dose: 1 mg Documented by: [id number] Admin: 11/01/20 19:22 Dose: 1 mg Documented by: [id number] Admin: 11/01/20 15:00 Dose: 1 mg Documented by: [id number] Admin: 11/01/20 08:16 Dose: 1 mg Documented by: [id number] Admin: 11/01/20 06:19 Dose: 1 mg Documented by: [id number] Admin: 10/31/20 22:59 Dose: 1 mg Documented by: [id number] Admin: 10/31/20 20:51 Dose: 1 mg Documented by: [id number] Admin: 10/31/20 15:59 Dose: 1 mg Documented by: [id number] Admin: 10/31/20 11:34 Dose: 1 mg Documented by: [id number] Heparin Sodium/Dextrose (Heparin Sodium/Dextrose) 25,000 units in 500 mls @ 28 mls/hr IV .[id number] [facility]; Protocol Stop: 11/30/20 05:14 Last Titration: 11/01/20 23:53 Dose: 1,450 units/hr, 29 mls/hr Documented by: [id number] Cosigned by: [id number] Titration: 11/01/20 22:14 Dose: 1,450 units/hr, 29 mls/hr Documented by: [id number] Cosigned by: [id number] Titration: 11/01/20 19:11 Dose: 1,400 units/hr, 28 mls/hr Documented by: [id number] Cosigned by: [id number] Admin: 11/01/20 17:35 Dose: 1,400 units/hr, 28 mls/hr Documented by: [id number] Cosigned by: [id number] Titration: 11/01/20 17:35 Dose: 1,400 units/hr, 28 mls/hr Documented by: [id number] Cosigned by: [id number] Titration: 11/01/20 15:17 Dose: 1,400 units/hr, 28 mls/hr Documented by: [id number] Cosigned by: [id number] Admin: 11/01/20 15:17 Dose: 1,350 units/hr, 27 mls/hr Documented by: [id number] Cosigned by: [id number] Admin: 11/01/20 12:00 Dose: 1,350 units/hr, 27 mls/hr Documented by: [id number] Cosigned by: [id number] Titration: 11/01/20 08:02 Dose: 1,350 units/hr, 27 mls/hr Documented by: [id number] Cosigned by: [id number] Titration: 11/01/20 07:01 Dose: 1,300 units/hr, 26 mls/hr Documented by: [id number] Cosigned by: [id number] Admin: 11/01/20 03:11 Dose: 1,300 units/hr, 26 mls/hr Documented by: [id number] Cosigned by: [id number] Titration: 11/01/20 02:54 Dose: 1,300 units/hr, 26 mls/hr Documented by: [id number] Cosigned by: [id number] Titration: 11/01/20 00:45 Dose: 1,300 units/hr, 26 mls/hr Documented by: [id number] Cosigned by: [id number] Titration: 10/31/20 18:44 Dose: 1,200 units/hr, 24 mls/hr Documented by: [id number] Cosigned by: [id number] Titration: 10/31/20 17:52 Dose: 1,200 units/hr, 24 mls/hr Documented by: [id number] Cosigned by: [id number] Titration: 10/31/20 11:18 Dose: 1,150 units/hr, 23 mls/hr Documented by: [id number] Cosigned by: [id number] Admin: 10/31/20 05:29 Dose: 1,100 units/hr, 22 mls/hr Documented by: [id number] Cosigned by: [id number] Lidocaine (Lidocaine 5% 1 Patch) 1 patch TD QAM [facility] Stop: 11/30/20 09:00 Last Admin: 11/01/20 10:20 Dose: 1 patch Documented by: [id number] Admin: 10/31/20 10:39 Dose: 1 patch Documented by: [id number] Miscellaneous (Remove Lidoderm Patch) 1 ea N/A DAILY@2100 [facility] Stop: 11/30/20 20:59 Last Admin: 11/01/20 21:25 Dose: 1 ea Documented by: [id number] Admin: 10/31/20 20:57 Dose: 1 ea Documented by: [id number] Discontinued Medications Albuterol (Albut/Ipratrop 3mg/0.5mg Neb 3 Ml Vial) 3 ml NEB NOW STA Stop: 10/31/20 04:06 Last Admin: 10/31/20 04:14 Dose: 3 ml Documented by: [id number] Heparin Sodium (Porcine) (Heparin Sod (Porcine) 1000 Unit/Ml) 1 units IV NOW ONE Stop: 10/31/20 05:14 Last Admin: 10/31/20 05:29 Dose: 5,000 units Documented by: [id number] Cosigned by: [id number] Heparin Sodium (Porcine) (Heparin Sod (Porcine) 1000 Unit/Ml) 2,000 units IV NOW ONE Stop: 11/01/20 00:46 Last Admin: 11/01/20 01:21 Dose: 2,000 units Documented by: [id number] Cosigned by: [id number] Heparin Sodium/Dextrose (Heparin Iv Adult Wt-Based Standard With Bolus Protocol) 1 ea IV NOW STA; Protocol Stop: 10/31/20 04:58 Last Admin: 10/31/20 05:31 Dose: Not Given Documented by: [id number] Sodium Chloride (Nss 1000ml) 1,000 mls @ 999 mls/hr IV .Q1H1M RAY Stop: 10/31/20 04:00 Last Infusion: 10/31/20 04:50 Dose: 0 mls/hr Documented by: [id number] Admin: 10/31/20 03:10 Dose: 999 mls/hr Documented by: [id number] Lorazepam (Ativan) 0.5 mg in 1 mls @ 1 mls/min IV NOW STA Stop: 10/31/20 04:06 Last Admin: 10/31/20 04:12 Dose: 1 mls/min Documented by: [id number] Ioversol (Optiray 320 125ml) 125 ml IV ONCE ONE Stop: 10/31/20 03:48 Last Admin: 10/31/20 03:47 Dose: 79 ml Documented by: [id number] Morphine Sulfate (Morphine Sulfate 4 Mg/Ml 1 Ml Carp\Vial) 4 mg IV Q15M PRN PRN Reason: Pain Stop: 11/14/20 02:56 Last Admin: 10/31/20 08:50 Dose: 4 mg Documented by: [id number] Admin: 10/31/20 03:52 Dose: 4 mg Documented by: [id number] Admin: 10/31/20 03:25 Dose: 4 mg Documented by: [id number] Admin: 10/31/20 03:10 Dose: 4 mg Documented by: [id number] Ondansetron HCl (Ondansetron Inj 2 Mg/Ml 2 Ml Vial) 4 mg IV NOW STA Stop: 10/31/20 02:58 Last Admin: 10/31/20 03:10 Dose: 4 mg Documented by: [id number] Critical Care Time I have personally spent greater than 47 minutes of critical care time in the direct management of this patient. This includes bedside care, interpretation of diagnostic studies, and testing, discussion with consultants, patient, and family members, and other required patient management activities. This 47 minutes is in excess of all separately billable procedures. Medical Decision Making Differential Diagnosis Differential diagnosis includes, but is not limited to: Myocardial infarction, dysrhythmia, pericarditis, pneumothorax, aortic aneurysm/dissection, DVT/PE, anxiety, GERD, PUD, electrolyte imbalance, thyroid disorder, pneumonia, bronc hitis, pancreatitis, and others Laboratory Data Result diagrams: 11/01/20 07:19 11/01/20 07:19 Lab Results 10/31/20 10/31/20 10/31/20 Range/Units 02:54 02:54 02:54 WBC 16.03 H (4.8-10.8) K/uL RBC 4.66 (4.2-5.4) M/uL Hgb 14.7 (12.0-16.0) g/dL Hct 42.0 (37-47) % MCV 90.1 (80-100) fL MCH 31.5 (25-34) pg MCHC 35.0 (32-36) g/dL RDW Std Deviation 40.1 (36.4-46.3) fL RDW Coeff of Alisha 12.3 (11.5-14.5) % Plt Count 263 (130-400) K/uL MPV 10.6 H (7.4-10.4) fL Immature Gran % (Auto) 0.2 % Neut % (Auto) 80.5 % Lymph % (Auto) 14.2 % Cedar % (Auto) 4.8 % Eos % (Auto) 0.2 % Baso % (Auto) 0.1 % Neut # (Auto) 12.89 H (1.4-6.5) K/uL Lymph # (Auto) 2.28 (1.2-3.4) K/uL Cedar # (Auto) 0.77 H (0.11-0.59) K/uL Eos # (Auto) 0.04 (0-0.5) K/uL Baso # (Auto) 0.02 (0-0.2) K/uL Immature Gran # (Auto) 0.03 H (0.00-0.02) K/uL PT (9.0-12.0) Seconds INR (0.9-1.1) APTT (21.0-31.0) Seconds PTT Ratio Sodium 138 (136-145) mmol/L Potassium 3.8 (3.5-5.1) mmol/L Chloride 104 (98-107) mmol/L Carbon Dioxide 24 (21-32) mmol/L Anion Gap 10.0 (3-11) BUN 13 (7-18) mg/dl Creatinine 0.81 (0.6-1.2) mg/dl Est Cr Clr Drug Dosing 107.4 ml/min Est GFR ( Amer) 120.3 ml/min Est GFR (Non-Af Amer) 103.8 ml/min BUN/Creatinine Ratio 15.7 (10-20) Glucose 94 (70-99) mg/dl Calcium 9.3 (8.5-10.1) mg/dl Total Bilirubin 0.4 (0.2-1) mg/dl AST 19 (15-37) U/L ALT 26 (12-78) U/L Alkaline Phosphatase 68 (45-117) U/L Troponin I < 0.015 (0-0.045) ng/ml Total Protein 9.1 H (6.4-8.2) gm/dl Albumin 3.7 (3.4-5.0) gm/dl Globulin 5.4 H (2.5-4.0) gm/dl Albumin/Globulin Ratio 0.7 L (0.9-2) Lipase 120 (73-393) U/L Urine Color Yellow Urine Appearance Cloudy A (Clear) Urine pH 5.5 (4.5-7.5) Ur Specific [place] 1.028 (1.000-1.030) Urine Protein Trace H (Negative) Urine Glucose (UA) Negative (Negative) Urine Ketones Trace H (Negative) Urine Blood 3+ H (Negative) Urine Nitrite Negative (Negative) Urine Bilirubin Negative (Negative) Urine Urobilinogen Negative (Negative) Ur Leukocyte Esterase Trace H (Negative) Urine WBC (Auto) 10-30 H (0-5) /hpf Urine RBC (Auto) 10-30 H (0-4) /hpf U Hyaline Cast (Auto) 5-10 H (0-5) /lpf U Epithel Cells (Auto) >30 H (0-5) /lpf Urine Bacteria (Auto) 2+ H (Negative) COVID-19 Eval Order SARS-CoV-2 (PCR) (Negative) 10/31/20 10/31/20 10/31/20 Range/Units 03:53 03:53 05:10 WBC (4.8-10.8) K/uL RBC (4.2-5.4) M/uL Hgb (12.0-16.0) g/dL Hct (37-47) % MCV (80-100) fL MCH (25-34) pg MCHC (32-36) g/dL RDW Std Deviation (36.4-46.3) fL RDW Coeff of Alisha (11.5-14.5) % Plt Count (130-400) K/uL MPV (7.4-10.4) fL Immature Gran % (Auto) % Neut % (Auto) % Lymph % (Auto) % Cedar % (Auto) % Eos % (Auto) % Baso % (Auto) % Neut # (Auto) (1.4-6.5) K/uL Lymph # (Auto) (1.2-3.4) K/uL Cedar # (Auto) (0.11-0.59) K/uL Eos # (Auto) (0-0.5) K/uL Baso # (Auto) (0-0.2) K/uL Immature Gran # (Auto) (0.00-0.02) K/uL PT 9.8 (9.0-12.0) Seconds INR 1.0 (0.9-1.1) APTT 25.9 (21.0-31.0) Seconds PTT Ratio 1.0 Sodium (136-145) mmol/L Potassium (3.5-5.1) mmol/L Chloride (98-107) mmol/L Carbon Dioxide (21-32) mmol/L Anion Gap (3-11) BUN (7-18) mg/dl Creatinine (0.6-1.2) mg/dl Est Cr Clr Drug Dosing ml/min Est GFR ( Amer) ml/min Est GFR (Non-Af Amer) ml/min BUN/Creatinine Ratio (10-20) Glucose (70-99) mg/dl Calcium (8.5-10.1) mg/dl Total Bilirubin (0.2-1) mg/dl AST (15-37) U/L ALT (12-78) U/L Alkaline Phosphatase (45-117) U/L Troponin I (0-0.045) ng/ml Total Protein (6.4-8.2) gm/dl Albumin (3.4-5.0) gm/dl Globulin (2.5-4.0) gm/dl Albumin/Globulin Ratio (0.9-2) Lipase (73-393) U/L Urine Color Urine Appearance (Clear) Urine pH (4.5-7.5) Ur Specific [place] (1.000-1.030) Urine Protein (Negative) Urine Glucose (UA) (Negative) Urine Ketones (Negative) Urine Blood (Negative) Urine Nitrite (Negative) Urine Bilirubin (Negative) Urine Urobilinogen (Negative) Ur Leukocyte Esterase (Negative) Urine WBC (Auto) (0-5) /hpf Urine RBC (Auto) (0-4) /hpf U Hyaline Cast (Auto) (0-5) /lpf U Epithel Cells (Auto) (0-5) /lpf Urine Bacteria (Auto) (Negative) COVID-19 Eval Order Covid19 at [facility] SARS-CoV-2 (PCR) NEGATIVE (Negative) Imaging Data Radiologist's Impression: Abdomen/Pelvis CT 10/31/20 02:57 CT SCAN OF THE ABDOMEN AND PELVIS WITHOUT IV CONTRAST CLINICAL HISTORY: Left flank pain. COMPARISON STUDY: No priors. TECHNIQUE: CT scan of the abdomen and pelvis is performed from the lung bases to the proximal femora. Images are reviewed in the axial, sagittal, and coronal planes. IV contrast was not administered for this examination. A dose lowering technique was utilized adhering to the principles of ALARA. CT DOSE: 1195.36 mGy.cm FINDINGS: Lung bases: The heart is normal in size and without pericardial effusion. Airspace consolidation is seen at the left lung base. The right lung base appears clear. There is trace left pleural effusion. Liver: The unenhanced liver is normal in size, contour, and attenuation. There is no intrahepatic biliary ductal dilatation. Gallbladder: Unremarkable. Spleen: Normal in size and attenuation. Pancreas: Unremarkable. Adrenal glands: Unremarkable. Kidneys: The unenhanced kidneys are normal in size and without hydronephrosis. There are no renal calculi identified. There is no evidence of contour deforming renal mass lesion. Abdominal vasculature: The abdominal aorta is normal in course and caliber. Bowel: There is no bowel obstruction. Mild to moderate fecal retention is seen throughout the colon. The appendix is well-visualized and normal. Peritoneum: There is no intraperitoneal free air or abdominal ascites. There is a fat-containing umbilical hernia. Lymphadenopathy: None. Pelvic viscera: The bladder, uterus, and adnexa are normal as visualized noting bilateral ovarian follicles. Skeletal structures: No lytic or blastic lesions are seen. IMPRESSION: 1. There are no acute infectious or inflammatory findings in the abdomen or pelvis. 2. There is left basilar consolidation. See report of chest CT performed concurrently for detailed intrathoracic findings. ACT 112: Negative or not required by law. Electronically signed by: Marc Durán M.D. 10/31/2020 8:04 AM Chest CTA 10/31/20 02:57 CHEST CTA for PULMONARY ARTERIES CT DOSE: HISTORY: Left-sided chest pain. TECHNIQUE: Multiaxial CT images of the chest were performed following the intravenous administration of contrast to evaluate the pulmonary arteries. Maximal intensity projection images were also obtained. A dose lowering technique was utilized adhering to the principles of ALARA. COMPARISON STUDY: None. FINDINGS: Please refer to same day abdomen and pelvis CT for further evaluation of the abdominal structures. Normal caliber thoracic aorta with no evidence for dissection. There is flattening of the interventricular septum suggestive of borderline right-sided heart strain. There are extensive bilateral pulmonary emboli seen within the distal main pulmonary arteries and extending at the majority of the lobar and segmental pulmonary arteries most pronounced within the left lower lobe. No mediastinal or hilar lymphadenopathy. Normal esophagus. No fractures within the visualized osseous structures. No pneumothorax. The central airways are patent. Wedge-shaped peripheral opacity within the basal left lower lobe. This likely represents a pulmonary infarct. The right lung is clear. The main pulmonary artery is borderline dilated 3 cm. IMPRESSION: 1. Extensive bilateral pulmonary emboli with borderline right-sided heart strain. 2. Left lower lobe peripheral airspace opacities consistent with pulmonary infarcts. ACT 112: Negative or not required by law. Electronically signed by: Cesar Nielsen M.D. 10/31/2020 7:43 AM MDM Narrative Physical exam and history were performed. Nursing notes, EMR, and Medication List were personally reviewed. Patient appears to have significant discomfort in her left flank and into her left shoulder. On exam she is tachycardic and appears uncomfortable. She does not have significant reproducible pain on palpation, nor did she have a rash. IV access was established and labs were obtained. She was hydrated with normal saline and given IV morphine and IV Zofran for comfort. The patient was sent to CT scan for imaging of her chest, abdomen, and pelvis. The patient's blood work is as above and was reviewed. She does have a slightly elevated white blood cell count. She does not have significant anemia, bandemia, or gross electrolyte imbalance. Troponin x1 is negative. CT scan of her belly was reviewed and does not show significant intra-abdominal process. CT scan of her chest however shows extensive pulmonary emboli, which is likely the etiology of her symptoms. The patient was given a DuoNeb and placed on oxygen for com fort. I did give her a small amount of Ativan. The case was discussed with my attending physician, Dr. Price, and due to the patient's extensive PEs we did give her heparin bolus and drip. I did stay in contact with the patient's family throughout her ER stay, and the patient's mother will be coming to the [facility] in a few hours. Overall the patient does not seem well for discharge considering her extensive pulmonary emboli. The case was discussed with the on-call hospitalist team who agreed to evaluate her here in the ER. Please see their dictation for further patient course, plan, and disposition. The chart was completed utilizing [employer] Speech Voice Recognition Software. Grammatical errors, random word insertions, pronoun errors, and incomplete sentences are an occasional consequence of this system due to software limitations, ambient noise, and hardware issues. Any formal questions or concerns about the content, text, or information contained within the body of th is dictation should be directly addressed to the provider for clarification. . Impression & Plan Pulmonary emboli Discharge Plan Visit Data Chief Complaint: Flank Pain Stated Complaint: REALLY BAD LEFT SIDE PAIN INTO SHOULDER ED Provider: Anjelica Price ED Midlevel Provider: Andrea Logan Discharge Problem: Pulmonary emboli Patient Disposition: Admitted As Inpatient Discharge Instructions Interventions: ED Discharge Assessment Last Done: 10/31/20 17:58
[2020-11-02 04:43] LABS: Basophils # (auto) 0.01 K/uL (0-0.2); Basophils % (auto) 0.1 %; Eosinophils # (auto) 0.03 K/uL (0-0.5); Eosinophils % (auto) 0.3 %; Hematocrit (blood only) 35.9 % (37-47); Hemoglobin 11.8 g/dL (12.0-16.0); Immature Granulocytes # (auto) 0.02 K/uL (0.00-0.02); Immature Granulocytes % (auto) 0.2 %; Lymphocytes # (auto) 2.05 K/uL (1.2-3.4); Lymphocytes % (auto) 20.7 %; Mean Corpuscular Hemoglobin 30.7 pg (25-34); Mean Corpuscular Hgb Conc 32.9 g/dL (32-36); Mean Corpuscular Volume 93.5 fL (80-100); Mean Platelet Volume 9.7 fL (7.4-10.4); Monocytes # (auto) 1.07 K/uL (0.11-0.59); Monocytes % (auto) 10.8 %; Neutrophils # (auto) 6.72 K/uL (1.4-6.5); Neutrophils % (auto) 67.9 %; Platelet Count 258 K/uL (130-400); RDW Coefficient of Variation 12.1 % (11.5-14.5); RDW Standard Deviation 41.3 fL (36.4-46.3); Red Blood Count 3.84 M/uL (4.2-5.4)
[2020-11-02 05:03] LABS: Partial Thromboplastin Ratio 1.7
[2020-11-02 05:04] LABS: Partial Thromboplastin Time 45.5 Seconds (21.0-31.0)
[2020-11-02 05:08] LABS: BUN Creatinine Ratio 10.6 (10-20); Blood Urea Nitrogen 6 mg/dl (7-18); Calcium 8.9 mg/dl (8.5-10.1); Carbon Dioxide 31 mmol/L (21-32); Chloride 101 mmol/L (98-107); Creatinine Clr Calc Pharmacy 166.8 ml/min; Est GFR (African American) > 150.0 ml/min; Est GFR (Non-African American) 136.6 ml/min; Glucose 95 mg/dl (70-99); Potassium 3.9 mmol/L (3.5-5.1); Sodium 137 mmol/L (136-145)
--- NOTE | 2020-11-02 06:59 | Hospitalist Progress Note ---
Date of Service November 02, 2020 Assessment & Plan (1) Pulmonary emboli: Plan: 19yo female without significant PMH presents with bilateral pulmonary emboli. Bilateral pulmonary embolism Patient presented with sudden-onset CP and SOB Tachycardic and tachypneic on admission; tachycardia has since resolved; afebrile Hemodynamically stable; oxygen requirement stable at 2L NC CTA chest with bilateral pulmonary emboli, borderline right-sided heart strain, left lower lobe peripheral airspace opacities consistent with pulmonary infarct BL LE doppler negative for DVT Continue heparin gtt Echo unremarkable, no evidence of RV strain Hypercoagulability workup pending OCP discontinued Pain control with APAP IV 1000mg q8h scheduled, oxycodone 7.5mg q4h scheduled, and dilauded 1mg IV q1h for breakthrough pain Discharge home potentially tomorrow (11/03) FEN: regular diet Code status: full code DVT ppx: heparin Consults: none PT/OT: not indicated Dispo: PCU tele Admission and Anticipated Discharge Date Admission Date: October 31, 2020 Supervising Physician Co-Signing Physician Notes Resident Physician Supervision Note: I independently interviewed and examined the patient and verified the [place] history and physical, reviewed labs and image studies and agree with resident Dr. Guillen findings and care plan. Subjective Patient seen and evaluated at bedside this morning. No acute events overnight. Patient reports a significant improvement in pain and SOB while laying down, although if she stands or exerts her self, the pain and SOB are just as severe as it has been thus far. No new symptoms, no additional concerns. Patient denies abdominal pain, nausea, vomiting, lightheadedness, dizziness, and diarrhea. Review of Systems Review of Systems: See HPI Physical Exam Physical Exam: Constitutional: uncomfortable-appearing but no acute distress, speaking in short sentences HEENT: MMM, mild facial flushing CV: tachycardic, no murmur appreciated, extremities well-perfused, no LE edema Resp: poor air movement/shallow breaths, mild expiratory wheezing, tachypneic Skin: warm, dry, no rash appreciated Neuro: AOx4, no focal neurological deficits appreciated Results & Data Results & Data ([facility]) Vital Signs (Past 12 Hours) Vital Signs Temp Pulse Pulse Resp BP Pulse Ox 11/02/20 03:44 36.7 C 82 16 104/64 99 11/02/20 00:31 37.3 C 08/27/21 00:00 96 H 11/01/20 23:07 38.1 C H 94 H 16 111/72 98 11/01/20 19:36 36.6 C 98 H 16 105/68 96 Resident Activity Tracking Resident Involvement: Resident Care Provided Care Provided: Adult Hospital Medicine
[2020-11-02] MEDS: LIDOCAINE 5% 1 PATCH TD SCH (07:24)
[2020-11-02] MEDS: ESCITALOPRAM OXALATE 20 MG TAB PO SCH (07:24)
[2020-11-02] MEDS: HYDROmorphone INJ 1 MG/ML SYRINGE IV PRN ×3 (07:24→11:31)
[2020-11-02] MEDS ORDERED: oxyCODONE HCL SOLN 5 MG/5 ML UDC PO PRN (10:03)
--- NOTE | 2020-11-02 10:31 | Medical Student Progress Note ---
Date of Service November 02, 2020 Assessment & Plan (1) Pulmonary emboli: Plan: --Pt is hemodynamically stable -Chest CTA Extensive bilateral pulmonary emboli with borderline right-sided heart strain, left lower lobe peripheral airspace opacities consistent with pulmonary infarct -Abdominal CTA negative -Venous Doppler Study negative -Echo shows left ventricular systolic function normal, right ventricle normal in size and function, right ventricular systolic pressure normal -Hypercoagulability panel results still pending -Continue heparin per protocol -Start Oxycodone 7.5mg po q4h -Start Acetaminophen IV 1000mg q8h -Continue dilauded IV q1h prn for breakthrough pain -OCP discontinued Admission and Anticipated Discharge Date Admission Date: October 31, 2020 Subjective 19 y/o female with Chest CTA findings of extensive bilateral pulmonary emboli. Today, the patient lying down in bed. She says that this morning it does not hurt when she is lying down and she can feel like she can take deeper breaths, but it is extremely painful to stand. Today the patient rates her pain a 6/10. Review of Systems Review of Systems: All systems reviewed & are unremarkable except as noted in Subjective Physical Exam Constitutional: Well developed, well nourished female, taking shallow breathes Respiratory: Decreased breath sounds Cardiovascular: Regular rate and rhythm, nor murmurs, rubs or gallops Results & Data ([facility]) Vital Signs (Past 12 Hours) Vital Signs Temp Pulse Pulse Resp BP Pulse Ox 11/02/20 08:00 37.2 C 90 16 107/70 99 11/02/20 03:44 36.7 C 82 16 104/64 99 11/02/20 00:31 37.3 C 11/02/20 00:00 96 H 11/01/20 23:07 38.1 C H 94 H 16 111/72 98
[2020-11-02 11:18] LABS: Partial Thromboplastin Ratio 1.6; Partial Thromboplastin Time 42.7 Seconds (21.0-31.0)
[2020-11-02] MEDS: HEPARIN SODIUM/DEXTROSE 25,000 UNITS/500 ML BAG IV SCH (11:27)
[2020-11-02] MEDS: ACETAMINOPHEN 1,000 MG/100 ML VIAL IV SCH ×3 (12:02→20:31)
[2020-11-02] MEDS: oxyCODONE HCL IR 5 MG TAB (IMMEDIATE RELEASE) PO SCH ×3 (14:54→20:18)
--- NOTE | 2020-11-02 16:37 | Electrocardiogram Report ---
Test Reason : Blood Pressure : / mmHG Vent. Rate : 109 BPM Atrial Rate : 109 BPM P-R Int : 126 ms QRS Dur : 078 ms QT Int : 334 ms P-R-T Axes : 077 045 050 degrees QTc Int : 449 ms Sinus tachycardia Possible Left atrial enlargement Borderline ECG No previous ECGs available Confirmed by Durga Zamarripa ([id number]) on 11/02/2020 4:37:46 PM Referred By: REFERRED SELF Confirmed By:Durga Zamarripa
[2020-11-02] MEDS ORDERED: HYDROmorphone INJ 1 MG/ML SYRINGE IV PRN (17:08)
[2020-11-02 18:20] LABS: Partial Thromboplastin Ratio 1.6; Partial Thromboplastin Time 42.4 Seconds (21.0-31.0)
[2020-11-02] MEDS ORDERED: ACETAMINOPHEN 1,000 MG/100 ML VIAL IV ONE (20:30)
[2020-11-03] MEDS ORDERED: oxyCODONE IR HOME PACK PO SCH
[2020-11-03] MEDS: oxyCODONE HCL IR 5 MG TAB (IMMEDIATE RELEASE) PO SCH ×5 (00:34→15:39)
[2020-11-03 01:28] LABS: Partial Thromboplastin Ratio 1.9
[2020-11-03 01:32] LABS: Partial Thromboplastin Time 49.4 Seconds (21.0-31.0)
[2020-11-03] MEDS: HEPARIN SODIUM/DEXTROSE 25,000 UNITS/500 ML BAG IV SCH (02:42)
[2020-11-03] MEDS: ACETAMINOPHEN 1,000 MG/100 ML VIAL IV SCH ×2 (02:46→11:13)
--- NOTE | 2020-11-03 06:02 | Hospitalist Progress Note ---
Date of Service November 03, 2020 Assessment & Plan (1) Pulmonary emboli: Plan: Chika is a 19yo female without significant PMH presents with bilateral pulmonary emboli. Bilateral pulmonary embolism Patient presented with sudden-onset CP and SOB, found to be tachycardic and tachypneic -- resolved Hemodynamically stable; oxygen requirement stable on RA Work-up as follows: CTA chest with bilateral pulmonary emboli, c/f right-sided heart strain, left lower lobe peripheral airspace opacities consistent with pulmonary infarct BL LE doppler negative for DVT Echo unremarkable, no evidence of RV strain Hypercoagulability workup pending OCP discontinued Anticoagulation: Discontinue hep gtt. Bridge to Warfarin (INR goal 2-3) with Lovenox (1mg/kg bid) - will initiate today. Pending hypercoagulability panel, consider hematology consult as outpatient Pain control with APAP IV 1000mg q8h scheduled, oxycodone 7.5mg q4h scheduled, and dilauded 1mg IV q1h for breakthrough pain FEN: regular diet Code status: full code DVT ppx: Lovenox Consults: none PT/OT: not indicated Dispo: PCU tele Admission and Anticipated Discharge Date Admission Date: October 31, 2020 Subjective Patient seen at the bedside this morning. No acute events overnight. Per report, pain is much improved compared to yesterday. She believes that the oxycodone is helping greatly. She still feels like she will get pain with large positional movements, including getting out of bed to go to the bathroom. However compared to before, this is much more manageable. She still endorses mild shortness of breath while speaking and with movements, but this is also improved from her perspective. Vital signs were normal overnight. She denies any chest pain or palpitations. Denies loss of appetite, nausea, vomiting. Review of Systems Review of Systems: as per HPI Physical Exam Physical Exam: General: Tired but well-appearing 19-year-old female who is lying back in her hospital bed relaxed upon my arrival. She speaks in short sentences, appearing mildly conversationally dyspneic. HEENT: NCAT. Eyes - Sclera are white, anicteric, and without injection. Mucous membranes are moist. No jugular venous distention. Cardiac: Normal rate and regular rhythm; S1 and S2 present with no murmurs, rubs, or gallops. Pulmonary: Mild conversational dyspnea appreciated. Mild work of breathing appreciated. No use of accessory muscles. Lungs do demonstrate mild crackles at the left base, otherwise are vesicular throughout. Abdominal: Normoactive bowel sounds. Abdomen was soft, nondistended, and non- tender to palpation. No hepatomegaly or splenomegaly. Extremities: Upper and lower extremities are warm and well perfused. Radial and dorsalis pedis pulses were 2+ b/l. Capillary refill assessed in UE was < 3 sec. no peripheral edema. Results & Data Results & Data ([facility]) Vital Signs (Past 12 Hours) Vital Signs Temp Pulse Pulse Resp BP Pulse Ox 11/03/20 05:55 89 11/03/20 02:44 37 C 88 18 112/72 93 11/03/20 00:17 36.9 C 77 16 101/69 92 11/02/20 21:24 37.6 C H 11/02/20 19:49 37.8 C H 103 H 16 109/71 95 Resident Activity Tracking Resident Involvement: Resident Care Provided Care Provided: Adult Hospital Medicine
--- NOTE | 2020-11-03 07:22 | Electrocardiogram Report ---
Test Reason : Blood Pressure : / mmHG Vent. Rate : 085 BPM Atrial Rate : 085 BPM P-R Int : 136 ms QRS Dur : 090 ms QT Int : 366 ms P-R-T Axes : 076 030 042 degrees QTc Int : 435 ms Normal sinus rhythm Normal ECG When compared with ECG of 31-OCT-2020 03:15, (unconfirmed) No significant change was found Confirmed by Durga Zamarripa ([id number]) on 11/03/2020 7:22:36 AM Referred By: REFERRED SELF Confirmed By:Durga Zamarripa
[2020-11-03 07:59] LABS: BUN Creatinine Ratio 10.1 (10-20); Blood Urea Nitrogen 6 mg/dl (7-18); Calcium 8.9 mg/dl (8.5-10.1); Carbon Dioxide 32 mmol/L (21-32); Chloride 101 mmol/L (98-107); Creatinine Clr Calc Pharmacy 160.6 ml/min; Est GFR (African American) > 150.0 ml/min; Est GFR (Non-African American) 134.9 ml/min; Glucose 84 mg/dl (70-99); Potassium 3.5 mmol/L (3.5-5.1); Sodium 137 mmol/L (136-145)
[2020-11-03] MEDS: LIDOCAINE 5% 1 PATCH TD SCH (08:01)
[2020-11-03] MEDS: ESCITALOPRAM OXALATE 20 MG TAB PO SCH (08:01)
[2020-11-03 08:10] LABS: Partial Thromboplastin Ratio 2.1; Partial Thromboplastin Time 55.2 Seconds (21.0-31.0)
[2020-11-03] MEDS ORDERED: ENOXAPARIN 80 MG/0.8 ML SYR SQ SCH (10:15)
[2020-11-03 15:10] VITALS: BP 99/62; TEMP 98.2; O2SAT 96
[2020-11-03] MEDS ORDERED: WARFARIN SOD 10 MG TAB PO SCH (16:00)
[2020-11-03 17:10] VITALS: PULSE 94
--- NOTE | 2020-11-03 17:51 | Discharge Summary ---
Date of Service November 03, 2020 Admission HPI Per Admitting Provider Chika Eckert is a 19-year-old female with no significant past medical history presenting with extensive left-sided PE. Patient woke up yesterday with pain in the left side of her chest worse with deep breathing. The pain worsened throughout the day. She was unable to lay on her left side or take a deep breath. Pain stabbing in nature, 10 out of 10 in severity. She denies palpitations, dizziness, syncope, abdominal pain, nausea, vomiting, diarrhea, constipation No additional complaints Patient denies personal or family history of VTE. No trauma. Patient is on LoEstrin OCPs. She did have a recent car ride from [place]4 hours long. She did receive the [employer] Covid vaccine approximately 1-1/2 weeks ago. Patient tachycardic upon arrival and tachypneic. Blood pressure stable. No respiratory distress. Adequate oxygenation on room air. She does CTA of the chest performed which revealed large embolus originating in the distal left pulmonary artery and extending into the origin of the left upper lobe and left lower lobe pulmonary arteries extending into the left posterior and lateral basal segments and subsegmental pulmonary arteries. Also with lower lobe consolidation most consistent with hemorrhage or infarct. Also with pulmonary emboli on the right side from the distal right pulmonary artery and the proximal right lower lobe, right middle lobe and right upper lobe. ER course: Heparin bolus and drip started Admission Exam Per Admitting Provider General: patient tearful, uncomfortable, AA&O x 4 Skin: warm, dry, intact, no rashes or lesions HEENT: NC/AT, PERRL, EOMI, anicteric sclera, conjunctiva without injection, external ear normal to inspection and nontender, nares patent, moist mucus membranes, dentition intact, no oropharyngeal lesions, neck supple, trachea midline, no LAD, no thyromegaly, no JVD Heart: +S1/S2, regular, tachycardic, no m/r/g Lungs: short, shallow breaths, tachypneic, equal air entry bilaterally, no rales/rhonchi/wheezes, +pleuritic chest pain Abd: +BS, soft, NT/ND, no masses/organomegaly/ascites Ext: warm, 2+ pulses in UE/LE bilaterally, no clubbing/cyanosis or edema Neuro: nonfocal, patient AA&O x 4, speech intact, no facial droop, moving all extremities on command with equal strength 5/5 Principal Diagnosis Bilateral pulmonary emboli Discharge Exam General: Tired but well-appearing 19-year-old female who is lying back in her hospital bed relaxed upon my arrival. She speaks in short sentences, appearing mildly conversationally dyspneic. HEENT: NCAT. Eyes - Sclera are white, anicteric, and without injection. Mucous membranes are moist. No jugular venous distention. Cardiac: Normal rate and regular rhythm; S1 and S2 present with no murmurs, rubs, or gallops. Pulmonary: Mild conversational dyspnea appreciated. Mild work of breathing appreciated. No use of accessory muscles. Lungs do demonstrate mild crackles at the left base, otherwise are vesicular throughout. Abdominal: Normoactive bowel sounds. Abdomen was soft, nondistended, and non- tender to palpation. No hepatomegaly or splenomegaly. Extremities: Upper and lower extremities are warm and well perfused. Radial and dorsalis pedis pulses were 2+ b/l. Capillary refill assessed in UE was < 3 sec. no peripheral edema. Discharge Data Allergies Allergy/AdvReac Type Severity Reaction Status Date / Time Sulfa (Sulfonamide Allergy Unknown Verified 10/31/20 05:55 Antibiotics) Consultations 10/31/20 05:23 ED Decision to Admit Stat Ordered Studies CHEST CTA for PULMONARY ARTERIES (10/31) CT DOSE: HISTORY: Left-sided chest pain. TECHNIQUE: Multiaxial CT images of the chest were performed following the intravenous administration of contrast to evaluate the pulmonary arteries. Maximal intensity projection images were also obtained. A dose lowering technique was utilized adhering to the principles of ALARA. COMPARISON STUDY: None. FINDINGS: Please refer to same day abdomen and pelvis CT for further evaluation of the abdominal structures. Normal caliber thoracic aorta with no evidence for dissection. There is flattening of the interventricular septum suggestive of borderline right-sided heart strain. There are extensive bilateral pulmonary emboli seen within the distal main pulmonary arteries and extending at the majority of the lobar and segmental pulmonary arteries most pronounced within the left lower lobe. No mediastinal or hilar lymphadenopathy. Normal esophagus. No fractures within the visualized osseous structures. No pneumothorax. The central airways are patent. Wedge-shaped peripheral opacity within the basal left lower lobe. This likely represents a pulmonary infarct. The right lung is clear. The main pulmonary artery is borderline dilated 3 cm. IMPRESSION: 1. Extensive bilateral pulmonary emboli with borderline right-sided heart stra in. 2. Left lower lobe peripheral airspace opacities consistent with pulmonary infarcts. ----- CT SCAN OF THE ABDOMEN AND PELVIS WITHOUT IV CONTRAST (10/31) CLINICAL HISTORY: Left flank pain. COMPARISON STUDY: No priors. TECHNIQUE: CT scan of the abdomen and pelvis is performed from the lung bases to the proximal femora. Images are reviewed in the axial, sagittal, and coronal planes. IV contrast was not administered for this examination. A dose lowering technique was utilized adhering to the principles of ALARA. CT DOSE: 1195.36 mGy.cm FINDINGS: Lung bases: The heart is normal in size and without pericardial effusion. Airspace consolidation is seen at the left lung base. The right lung base appears clear. There is trace left pleural effusion. Liver: The unenhanced liver is normal in size, contour, and attenuation. There is no intrahepatic biliary ductal dilatation. Gallbladder: Unremarkable. Spleen: Normal in size and attenuation. Pancreas: Unremarkable. Adrenal glands: Unremarkable. Kidneys: The unenhanced kidneys are normal in size and without hydronephrosis. There are no renal calculi identified. There is no evidence of contour deforming renal mass lesion. Abdominal vasculature: The abdominal aorta is normal in course and caliber. Bowel: There is no bowel obstruction. Mild to moderate fecal retention is seen throughout the colon. The appendix is well-visualized and normal. Peritoneum: There is no intraperitoneal free air or abdominal ascites. There is a fat-containing umbilical hernia. Lymphadenopathy: None. Pelvic viscera: The bladder, uterus, and adnexa are normal as visualized noting bilateral ovarian follicles. Skeletal structures: No lytic or blastic lesions are seen. IMPRESSION: 1. There are no acute infectious or inflammatory findings in the abdomen or pelvis. 2. There is left basilar consolidation. See report of chest CT performed concurrently for detailed intrathoracic findings. ----- ULTRASOUND BILATERAL LOWER EXTREMITY VENOUS (11/03) CLINICAL HISTORY: Pulmonary embolus. COMPARISON STUDY: No priors. TECHNIQUE: Real-time, grayscale, and color Doppler sonography of the deep veins of the right and left lower extremity was performed from the inguinal crease to the calf. Compression and augmentation were utilized. FINDINGS: There is no sonographic evidence of deep venous thrombosis identified in the right or left lower extremity. The common femoral, superficial femoral, and popliteal veins are patent and normally compressible bilaterally. The greater saphenous vein and the profunda femoris vein at the junction with the common femoral vein are clear in both legs. The visualized calf veins are patent bilaterally. IMPRESSION: There is no sonographic evidence of deep venous thrombosis identified in the right or left lower extremity. ------ Hospital Course (1) Pulmonary emboli: Chika is a 19yo female without significant PMH presents with bilateral pulmonary emboli. Bilateral pulmonary embolism Patient presented with sudden-onset CP and SOB, found to be tachycardic and tachypneic -- resolved prior to discharge Hemodynamically stable upon discharge, not requiring supplemental O2 Work-up as follows: CTA chest with bilateral pulmonary emboli, c/f right-sided heart strain, left lower lobe peripheral airspace opacities consistent with pulmonary infarct BL LE doppler negative for DVT Echo unremarkable, no evidence of RV strain Hypercoagulability workup pending OCP discontinued Differential for the cause of these unprovoked PEs is wide: - Patient recently returned from a 4 hour car-ride prior to visit - [employer] COVID-19 vaccine approx. 1-1.5 weeks prior - not a cause since platelet count normal. - There is family history of hypercoagulability secondary to 'Anti- phospholipid antibody' - Patient was also on oral contraceptives (LoEstrin) --> Await hypercoagulability work-up. Possibility of 'Anti-phospholipid antibody' high due to family history. If negative- consider hematology consult. Initially on heparin gtt --> - Chose warfarin for anticoagulation due to concern of antiphospholipid antibody with INR goal of 2-3. - transitioned to Lovenox 1mg/kg b.i.d. x 7 days prior to discharge - given warfarin 10mg x 1 on day of discharged; RX sent for warfarin 5mg to begin as outpatient - Please follow-up PT/INR on 11/05; a script has been given to have this done at a lab of her choice upon d/c. Goal INR 2-3. - Arrangements for anticoagulation clinic will be made in [place], [place] (via [facility]) following her return - Pending results of hypercoagulability panel and if antiphospholipid antibody negative - can consider transitioning to Eliquis or Xarelto For pain - Short course of oxycodone 7.5mg q4h RAY sent for patient to use -- thorough discussion held about weening off this in the near future as able Otherwise, please see patient instructions below. Thank you for your participation in Chika Eckert's care. Total Time Total Time Spent Total Time Spent (In Minutes): 45 Discharge Plan Discharge Items Patient Disposition: Home - Self-Care Reason For Visit: extensive pulmonart emboli Discharge Diagnosis: bilateral pulmonary emboli Activity: Per Instructions section Non-emergency contact: Primary Care Provider Call non-emergency contact if: your symptoms worsen Follow-up/Referrals: [facility] [Primary Care Provider] - Diet: Regular Addtl Attending Provider Instructions: You were admitted to [facility] for evaluation and management of pulmonary emboli. Pulmonary emboli are small blood clots that have become lodged within the blood vessels that supply the lungs. During your hospital stay, we focused on treating these blood clots and their associated pain. You are initially treated with heparin, a blood thinner, through the IV. Prior to your discharge, you transitioned to Lovenox and warfarin. To review, warfarin takes several days to build up in the blood; as such, it requires we "bridge" you with another medication during this processthis medication is Lovenox. To clarify the medication plan: For the next 7 days, beginning 11/04, take 80 mg (0.8 mL) twice daily, 12 hours apart. After 7 days, stop the Lovenox unless otherwise directed by your phys ician. Begin taking warfarin 5 mg daily, and continue doing this until otherwise directed by your primary care provider (this will depend on what your INR returns as) --> Please have your blood test (PT/INR) drawn on 11/05 at a lab that is convenient for you at home and have results forwarded to your primary care provider. --> A lab slip has been provided for you on discharge to get this done. Pending the results of your hypercoagulability panel (lab test that we clemente to test for predisposing factors that could have caused these clots), you may be a candidate for one of the newer anticoagulants such as Xarelto or Eliquis. This will require discussion for physician and the anticoagulation clinic. Short course of oxycodone (1 week) has been sent to your pharmacy to help control pain. As we discussed, the pain caused by these emboli is likely to diminish, but persist, over the next several days to weeks. While the initial course is scheduled every 4 hours, we do recommend beginning to space this out (every 6-8 hours between doses) as you are able to wean any dependence. Eventually, you should only be using pain medications as needed. Further: While you are at home this next week, it will be very important to follow-up with your primary care provider to review this visit, the medications, and the plan. It will also be important to discuss pain. A discharge summary will be sent to them reviewing this visit. While you are home, it is extremely important that you have your INR checked to adjust your dose of warfarin as needed. If you lose the prescription given to you at discharge, please call your primary care doctor's office and ask for a new one. Upon returning to [place], we advised that you establish care with a primary care physician here in [facility]. During your hospital stay here, you were followed by both Dr. Kimble and Mindy. If you would like to establish with one of them, they are both able to provide primary care services and aid with your post hospital course. Their office may be contacted at [phone]. Their office is located at [facility] [facility], [place] [address], [place], [place]. Further, upon your return to [place], we highly recommend that you establish with our anticoagulation clinic. We have reached out to our case loader operator here in the hospital to set you up an appointment for the week of your return. This clinic helps manage your warfarin and any adjustments as needed. They will also be able to provide recommendations on your candidacy for switching to newer anticoagulants. Down the line, it is also advisable that you get connected with a field crew chief to help determine whether or not any risk factors/conditions are present that would warrant additional treatment or screening for other family members. However, like we discussed, the exact cause of your pulmonary emboli is somewhat unclear right nowit may be related to an underlying condition, or it may have been precipitated by combination of factors, such as control pills and the recent vaccination. As we spent a lot of time discussing, is going to be very important that you listen to your body during your recovery. If you feel that you are overworking yourself, it is important to stop and take a break. Until you are seen in follow-up, we would advise against any sort of strenuous exercising, including running or lifting. Walking in short distances is okay, as long as you feel comfortable while doing such. CONTACT YOUR PRIMARY CARE PROVIDER if you experience any of the following: Fever Leg pain, swelling, or warmth to the touch Difficulty following your treatment plan, or difficulty taking medications CALL 911 OR GO TO THE EMERGENCY DEPARTMENT if you experience any of the following: Sudden, severe abdominal pain or nausea/vomiting Severe chest pain, or chest pain that radiates (moves) to your jaw or arm Sudden, severe shortness of breath or difficulty breathing Thank you for allowing us to participate in your care We wish you all the best in your recovery. Ezoi Kimble MD Resident Physician [facility] [address], [address] [place], [place] Pending Studies at Discharge: Yes Stand-Alone Forms: My [facility] kontoblick, Smoking Cessation Medications and DC Order Prescriptions: New enoxaparin [Lovenox] 80 mg/0.8 mL Syringe 80 mg subcut Q12H 7 Days Qty: 11.2 RF: 0 warfarin 5 mg tablet 5 mg PO DAILY 30 Days Qty: 30 RF: 0 oxycodone 5 mg Tablet 7.5 mg PO Q4H Qty: 20 RF: 0 Continued escitalopram oxalate 20 mg tablet 20 mg PO DAILY RF: 0 Discontinued Lo Loestrin Fe 1 mg-10 mcg (24)/10 mcg (2) tablet 1 tab PO DAILY RF: 0 Discharge Orders: Discharge Order (Routine); Ordered 11/03/20 Ordered By: Ezio Boone/Other Patient Handouts: Pulmonary Embolism Admission Data Admit Date/Time: 10/31/20 05:47 Attending Provider: Amee Rodriguez Admit Provider: Josie Quinteros Primary Care Provider: [facility] Other Providers: Josie Quinteros Other Interventions: Discharge Summary Assessment (RN) Last Done: 11/03/20 17:09 Supervising Physician Co-Signing Physician Notes Resident Physician Supervision Note: I independently interviewed and examined the patient and verified the [place] history and physical, reviewed labs and image studies and agree with resident Dr. Kimble findings and care plan.
[2020-11-03 23:40] LABS: Anti-Thrombin III Activity 98 % normal (80-135); B2 Glycoprotein IgA <2.0 U/mL (<20.0); B2 Glycoprotein IgG <2.0 U/mL (<20.0); B2 Glycoprotein IgM <2.0 U/mL (<20.0); Phosphatidylserine IgG <10 U/mL (<10); Phosphatidylserine IgM <25 U/mL (<25)
[2020-11-04 00:41] LABS: Protein S Functional(Activity) 106 % (60-140)
== END 2020-11-03 18:14 | disposition home or self-care (01) | DRG 176 ==
LOC: ED 02:22 → EDINP 05:47 → SUATTDRO 05:47 → 2S 15:59
DX: I26.99 Other pulmonary embolism without acute cor pulmonale; Z79.3 Long term (current) use of hormonal contraceptives; F41.9 Anxiety disorder, unspecified; Z88.2 Allergy status to sulfonamides